=== PATIENT | female | born 1935 ===

== ENCOUNTER 2019-01-27 11:01 | Inpatient (IN) | payer OTHER ==
[2019-01-27 11:01] VITALS: BMI 35.0
[2019-01-27 12:00] LABS: BASO % 0.6 % (0.0-2.0); EOS # 0.2 K/uL (0.0-0.7); EOS % 4.3 % (0.0-4.0); HEMOGLOBIN 12.2 g/dL (12.0-16.0); LYMPH # 1.1 K/uL (1.0-4.3); LYMPH % 20.4 % (20.0-40.0); MEAN CELL VOLUME 91.4 fl (81.0-99.0); MEAN CORPUSCULAR HEMOGLOBIN 30.5 pg (27.0-31.0); MEAN CORPUSCULAR HGB CONC 33.4 g/dL (33.0-37.0); MEAN PLATELET VOLUME 11.2 fl (7.2-11.7); MONO # 0.5 K/uL (0.0-0.8); MONO % 8.7 % (0.0-10.0); NEUT # 3.6 K/uL (1.8-7.0); RED CELL DISTRIBUTION WIDTH 14.4 % (11.5-14.5); WHITE BLOOD COUNT 5.5 K/uL (4.8-10.8)
[2019-01-27 12:05] LABS: PROTHROMBIN TIME 11.6 Seconds (9.8-13.1)
[2019-01-27 12:07] LABS: PARTIAL THROMBOPLASTIN TIME 28.2 Seconds (25.6-37.1)
[2019-01-27 12:15] LABS: ALB/GLOB RATIO 1.3 (1.0-2.1); BLOOD UREA NITROGEN 19 mg/dl (7-17); CALCIUM 8.9 mg/dL (8.4-10.2); GFR NON-AFRICAN AMERICAN 53
[2019-01-27 12:24] LABS: B-TYPE NATRIURETIC PEPTIDE 1160 pg/ml (0-900)
[2019-01-27 12:30] LABS: ALT/SGPT 13 U/L (9-52); AST/SGOT 24 U/L (14-36)
[2019-01-27] MEDS ORDERED: Enalaprilat 2.5 MG/2 ML IVP STA (12:53)
--- NOTE | 2019-01-27 12:56 | RAD ---
Date of service: 01/27/2019 HISTORY: SOB COMPARISON: 07/30/2014 TECHNIQUE: 1 view obtained. FINDINGS: LUNGS: No active pulmonary disease. PLEURA: No significant pleural effusion identified, no pneumothorax apparent. CARDIOVASCULAR: Mild aortic atherosclerotic calcification present. Normal cardiac size. No pulmonary vascular congestion. OSSEOUS STRUCTURES: No significant abnormalities. VISUALIZED UPPER ABDOMEN: Normal. OTHER FINDINGS: None. IMPRESSION: No active disease.
--- NOTE | 2019-01-27 12:58 | CT ---
Date of service: 01/27/2019 PROCEDURE: CT HEAD WITHOUT CONTRAST. HISTORY: r/o ICH COMPARISON: None available. TECHNIQUE: Axial computed tomography images were obtained through the head/brain without intravenous contrast. Radiation dose: Total exam DLP = 908.11 mGy-cm. This CT exam was performed using one or more of the following dose reduction techniques: Automated exposure control, adjustment of the mA and/or kV according to patient size, and/or use of iterative reconstruction technique. FINDINGS: HEMORRHAGE: No intracranial hemorrhage. BRAIN: No mass effect or edema. Diffuse cerebral cortical atrophy and age-related microangiopathic small-vessel changes in the white matter tracts are appreciated. A few tiny lacunar infarcts are also not excluded. Posterior fossa is unremarkable. There is moderate atherosclerotic change of the intracranial internal carotid arteries. VENTRICLES: Unremarkable. No hydrocephalus. CALVARIUM: Unremarkable. PARANASAL SINUSES: Unremarkable as visualized. No significant inflammatory changes. MASTOID AIR CELLS: Unremarkable as visualized. No inflammatory changes. OTHER FINDINGS: None. IMPRESSION: No evidence of recent infarct or intracranial hemorrhage. Age related changes.
--- NOTE | 2019-01-27 13:19 | ED PDOC ---
HPI: Hypertension/Hypotension Time Seen by Provider: 01/27/19 11:19 Chief Complaint (Nursing): High Blood Pressure Chief Complaint (Provider): headache, "my blood pressure is high" History Per: Patient History/Exam Limitations: no limitations Onset/Duration Of Symptoms: Days (2-3 days), Gradual Associated Symptoms: Blurred Vision, Headache. denies: Dyspnea, Focal Weakness Quality Of Symptoms: Other (bradycardia on monitor but no palpitations) Severity: Moderate Exacerbating Factor(s): Pos: Recent Change In Medication Additional History Per: Family (granddaughter is an RN) Additional Complaint(s): 84yo female hx HTN, within last several weeks had antihyperensive regimen changed to toprol 50mg monotherapy, prior on amlodipine and bystolic, today notes her BP has been very high and she's experiencing headache and blurry vision, also feels slightly off balance. Denies chest pain, notes mild dyspnea on exertion but no edema, orthopnea, syncope, focal weakness, change in speech or falls within last 2 weeks. Does not take aspirin. Past Medical History Reviewed: Historical Data, Nursing Documentation, Vital Signs Vital Signs: Last Vital Signs Temp 98.4 F 01/27/19 11:06 Pulse 55 L 01/27/19 11:58 Resp 18 01/27/19 11:06 BP 239/96 H 01/27/19 11:58 Pulse Ox 98 01/27/19 11:06 - Medical History PMH: Arthritis, HTN Denies: Diabetes, Chronic Kidney Disease - Surgical History Surgical History: Cholecystectomy Other surgeries: cataract - Family History Family History: States: Unknown Family Hx - Living Arrangements Living Arrangements: With Family - Social History Current smoker - smoking cessation education provided: No (quit 40yrs ago) - Home Medications Home Medications: Ambulatory Orders Medication Instructions Recorded Latanoprost 0.005% Opht [Xalatan 1 drop OU HS #1 bottle 01/29/19 Opht] Losartan [Cozaar] 100 mg PO DAILY #30 tab 01/29/19 Metoprolol Tartrate [Lopressor] 25 mg PO Q12 #60 tab 01/29/19 Rivaroxaban [Xarelto] 20 mg PO QD5 #30 tab 01/29/19 - Allergies Allergies/Adverse Reactions: Allergies Allergy/AdvReac Type Severity Reaction Status Date / Time ciprofloxacin [From Cipro] Allergy SWELLING Verified 01/27/19 11:06 Review of Systems Constitutional: Negative for: Fever Eyes: Negative for: Conjunctivae Inflammation ENT: Negative for: Ear Pain Cardiovascular: Negative for: Chest Pain, Palpitations Respiratory: Positive for: SOB with Exertion. Negative for: Cough, Shortness of Breath Gastrointestinal: Negative for: Nausea, Vomiting Genitourinary Female: Negative for: Dysuria Skin: Negative for: Rash Neurological: Positive for: Incoordination (slight), Headache, Dizziness. Negative for: Weakness, Numbness, Change in Speech Psych: Negative for: Anxiety, Depression Physical Exam - Reviewed Nursing Documentation Reviewed: Yes Vital Signs Reviewed: Yes - Physical Exam Appears: Positive for: Well, Non-toxic, No Acute Distress Head Exam: Positive for: ATRAUMATIC, NORMAL INSPECTION, NORMOCEPHALIC Skin: Positive for: Normal Color, Warm, DRY Eye Exam: Positive for: EOMI, Normal appearance, PERRL ENT: Positive for: Normal ENT Inspection Neck: Positive for: Normal, Painless ROM Cardiovascular/Chest: Positive for: Regular Rate, Rhythm Respiratory: Positive for: CNT, Normal Breath Sounds Gastrointestinal/Abdominal: Positive for: Normal Exam, Soft Back: Positive for: Normal Inspection Extremity: Positive for: Normal ROM Neurological/Psych: Positive for: Awake, Alert, Normal Tone, Oriented, Cerebellar Tests (intact), 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 Negative for: Motor/Sensory Deficits, Facial Droop - Laboratory Results Result Diagrams: 01/29/19 04:20 01/29/19 04:20 Lab Results: PT 11.6 Seconds (9.8-13.1) 01/27/19 11:55 INR 1.0 01/27/19 11:55 APTT 28.2 Seconds (25.6-37.1) 01/27/19 11:55 Troponin I < 0.0120 ng/mL (0.00-0.120) 01/27/19 11:55 NT-Pro-B Natriuret Pep 1160 pg/ml (0-900) H 01/27/19 11:55 Total Bilirubin 0.8 mg/dl (0.2-1.3) 01/27/19 11:55 AST 24 U/L (14-36) 01/27/19 11:55 ALT 13 U/L (9-52) 04/21/19 11:55 Alkaline Phosphatase 65 U/L (38-126) 01/27/19 11:55 Total Protein 7.1 G/DL (6.3-8.2) 01/27/19 11:55 Albumin 4.0 g/dL (3.5-5.0) 01/27/19 11:55 Globulin 3.1 gm/dL (2.2-3.9) 01/27/19 11:55 Albumin/Globulin Ratio 1.3 (1.0-2.1) 01/27/19 11:55 - ECG ECG: Positive for: Interpreted By Me ECG Rhythm: Positive for: Sinus Rhythm, Sinus Bradycardia, Nonspecific Changes Rate: 47 O2 Sat by Pulse Oximetry: 98 Pulse Ox Interpretation: Normal - Radiology X-Ray: Read By Radiologist X-Ray Interpretation: No Acute Disease - CT Scan/US CT brain Other Rad Studies (CT/US): Radiology Report Reviewed Medical Decision Making Medical Decision Making: patient denies prior seeing content assistant workup for hypertensive urgency with headache, bradycardia on monitor. 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 Needs BP medications adjusted and echo, no cardio eval prior. Patient requested a new PMD, does not wish to see Dr Clarke any longer. inbound call center representative medicine Dr Diego contacted and case discussed. Cardio consult to be ordered. Disposition - Clinical Impression Clinical Impression: Bradycardia, Hypertensive urgency, Headache - Patient ED Disposition Is Patient to be Admitted: Yes Counseled Patient/Family Regarding: Studies Performed, Diagnosis, Need For Followup - Disposition Disposition Time: 13:35 Condition: FAIR - Pt Status Changed To: Hospital Disposition Of: Inpatient - Admit Certification Admit to Inpatient:: After my assessment, the patient will require hospitalization for at least two midnights. This is because of the severity of symptoms shown, intensity of services needed, and/or the medical risk in this patient being treated as an outpatient.
[2019-01-27] MEDS ORDERED: EnalaprilAT 1.25 mg/ml Inj IVP STA (13:23)
[2019-01-27] MEDS ORDERED: EnalaprilAT 1.25 mg/ml Inj ONE (13:28)
--- NOTE | 2019-01-27 14:30 | CP.PCM.HP ---
<Tomás Rojas - Last Filed: 01/27/19 15:44> History of Present Illness - History of Present Illness History of Present Illness: Hx taken from patient PMD Dr Clarke 84 y/o F lives alone and presents to ER with c/o headache, lightheadedness and elevated BP at home. Patient admits Hx of HTN, Cataract and O/A. She has been taking Metoprolol and vitamins but no other meds at home before presentations. HEadaches are generalized and present for the last 3 days. No falls, weakness, difficulty speaking or numbness/tingling. She states that today her BP at home was 246/80s. Denies CP, SOB, paalpitations and states she is able to walk few block with a cane with no SOB. Denies hx of CAD/CP in the past. 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 Also patient admits urinary incontinence for last few years, getting worse, not currently taking any meds which she describes as inability to reach the bathroom in time. At ED patient was found to have elevated BP with slow HR. She was given Clonidine 0.2 that corrected the HBP. HEadache persistent as well as HR in 40s. BW only remarkable for BNP 1160 and GFR 53. PMHx: HTN. O/A. Cataract Meds: Toprol 50 mg daily. Also found to have Timolol as active meds on med rec unsure is currently using it SxHx: Foot Sx, Cholecystectomy, Cataract SHx: Former smoker and socially ETOH more than 30 years ago. Present on Admission - Present on Admission Any Indicators Present on Admission: No Review of Systems - Review of Systems All systems: reviewed and no additional remarkable complaints except (those described on HPI) Past Patient History - Past Medical History & Family History Past Medical History?: Yes - Past Social History Smoking Status: Former Smoker Alcohol: None - CARDIAC Hx Hypertension: Yes - PULMONARY Hx Respiratory Disorders: No - NEUROLOGICAL Hx Neurological Disorder: Yes Other/Comment: NEUROPATHY - HEENT Hx HEENT Problems: Yes Hx Cataracts: Yes Hx Glaucoma: Yes - RENAL Hx Chronic Kidney Disease: No - ENDOCRINE/METABOLIC Hx Endocrine Disorders: No - HEMATOLOGICAL/ONCOLOGICAL Hx Blood Disorders: No - INTEGUMENTARY Hx Dermatological Problems: No Other/Comment: chicken pox measles - MUSCULOSKELETAL/RHEUMATOLOGICAL Hx Arthritis: Yes - GASTROINTESTINAL Hx Gastrointestinal Disorders: No - GENITOURINARY/GYNECOLOGICAL Hx Genitourinary Disorders: Yes Other/Comment: Urge incontinence - PSYCHIATRIC Hx Psychophysiologic Disorder: No Hx Substance Use: No - SURGICAL HISTORY Hx Surgeries: Yes Hx Cataract Extraction: Yes Hx Cholecystectomy: Yes - ANESTHESIA Hx Anesthesia: Yes Hx Anesthesia Reactions: No Hx Malignant Hyperthermia: No Meds Allergies/Adverse Reactions: Allergies Allergy/AdvReac Type Severity Reaction Status Date / Time ciprofloxacin [From Cipro] Allergy SWELLING Verified 01/27/19 11:06 Physical Exam - Constitutional Appears: Non-toxic, No Acute Distress Additional comments: Pleasant - Eye Exam Eye Exam: EOMI, Normal appearance - ENT Exam ENT Exam: Mucous Membranes Moist - Respiratory Exam Respiratory Exam: Rales (Scattered rales more to R/lower lung), NORMAL BREATHING PATTERN. absent: Decreased Breath Sounds, Wheezes, Respiratory Distress - Cardiovascular Exam Cardiovascular Exam: Bradycardia, REGULAR RHYTHM, +S1, +S2. absent: Gallop - GI/Abdominal Exam GI & Abdominal Exam: Normal Bowel Sounds, Soft. absent: Distended, Guarding, Hernia, Tenderness - Extremities Exam Extremities exam: Positive for: normal capillary refill, pedal edema (trace), pedal pulses present. Negative for: calf tenderness - Neurological Exam Neurological exam: Alert, Oriented x3, Reflexes Normal - Skin Skin Exam: Intact, Normal Color, Warm Results - Vital Signs Recent Vital Signs: Last Vital Signs Temp 98.4 F 01/27/19 11:06 Pulse 47 L 01/27/19 13:54 Resp 17 01/27/19 13:31 BP 149/73 01/27/19 13:31 Pulse Ox 98 01/27/19 13:54 - Labs Result Diagrams: 01/27/19 11:55 01/27/19 11:55 Labs: Laboratory Results - last 24 hr 01/27/19 01/27/19 01/27/19 11:55 11:55 11:55 WBC 5.5 RBC 4.00 Hgb 12.2 Hct 36.6 MCV 91.4 MCH 30.5 MCHC 33.4 RDW 14.4 Plt Count 191 MPV 11.2 Neut % (Auto) 66.0 Lymph % (Auto) 20.4 [place] % (Auto) 8.7 Eos % (Auto) 4.3 H Baso % (Auto) 0.6 Neut # (Auto) 3.6 Lymph # (Auto) 1.1 [place] # (Auto) 0.5 Eos # (Auto) 0.2 Baso # (Auto) 0.0 PT 11.6 INR 1.0 APTT 28.2 Sodium 138 Potassium 4.7 Chloride 101 Carbon Dioxide 29 Anion Gap 13 BUN 19 H Creatinine 1.0 Est GFR ( Amer) > 60 Est GFR (Non-Af Amer) 53 Random Glucose 99 Calcium 8.9 Phosphorus 3.7 Magnesium 2.0 Total Bilirubin 0.8 AST 24 ALT 13 Alkaline Phosphatase 65 Troponin I < 0.0120 NT-Pro-B Natriuret Pep 1160 H Total Protein 7.1 Albumin 4.0 Globulin 3.1 Albumin/Globulin Ratio 1.3 TSH 3rd Generation 2.73 Assessment & Plan - Assessment and Plan (Free Text) Assessment: 84 y/o F with hx of HTN, cataract and apparently glaucoma is admitted for hypertensive urgency and bradycardia. Hypertensive urgency Improved BP normalized but persistent bradycardia Headache improving. Dizziness resolved EKG NSR CT head: Age related changes BNP 1160 and GFR 53 likely chronic Liver enzimes WNL S/P Clonidine 0.2 mg once at ED Hold BB and Timolol due to bradycardia Start Clonidine 0.1 mg q8h for now Cardiology consult. F/U recs Bradycardia HR 40s sustained EKG: sinus bradycardia NO change after clonidine treatment Hold BB due to bradycardia. 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 Admit to tele Cardiology consult CKD Stage IV GFR 53 Monitor Elevated ProBNP No known Hx of CHF but some rales on PE No SOB Possible CHF with some CKD component Cardio consult F/U as outpatient DVT prophylaxis Lovenox 40 mg daily <Ramiro Diego D - Last Filed: 01/27/19 16:56> Results - Vital Signs Recent Vital Signs: Last Vital Signs Temp 97.7 F 01/27/19 16:40 Pulse 48 L 01/27/19 16:40 Resp 18 01/27/19 16:40 BP 182/70 H 01/27/19 16:40 Pulse Ox 94 L 01/27/19 16:40 - Labs Result Diagrams: 01/27/19 11:55 01/27/19 11:55 Labs: Laboratory Results - last 24 hr 01/27/19 01/27/19 01/27/19 11:55 11:55 11:55 WBC 5.5 RBC 4.00 Hgb 12.2 Hct 36.6 MCV 91.4 MCH 30.5 MCHC 33.4 RDW 14.4 Plt Count 191 MPV 11.2 Neut % (Auto) 66.0 Lymph % (Auto) 20.4 [place] % (Auto) 8.7 Eos % (Auto) 4.3 H Baso % (Auto) 0.6 Neut # (Auto) 3.6 Lymph # (Auto) 1.1 [place] # (Auto) 0.5 Eos # (Auto) 0.2 Baso # (Auto) 0.0 PT 11.6 INR 1.0 APTT 28.2 Sodium 138 Potassium 4.7 Chloride 101 Carbon Dioxide 29 Anion Gap 13 BUN 19 H Creatinine 1.0 Est GFR ( Amer) > 60 Est GFR (Non-Af Amer) 53 Random Glucose 99 Calcium 8.9 Phosphorus 3.7 Magnesium 2.0 Total Bilirubin 0.8 AST 24 ALT 13 Alkaline Phosphatase 65 Troponin I < 0.0120 NT-Pro-B Natriuret Pep 1160 H Total Protein 7.1 Albumin 4.0 Globulin 3.1 Albumin/Globulin Ratio 1.3 TSH 3rd Generation 2.73 Urine Color Urine Clarity Urine pH Ur Specific [place] Urine Protein Urine Glucose (UA) Urine Ketones Urine Blood Urine Nitrate Urine Bilirubin Urine Urobilinogen Ur Leukocyte Esterase Urine RBC (Auto) Urine Microscopic WBC Ur Squamous Epith Cells Urine Bacteria 01/27/19 15:11 WBC RBC Hgb Hct MCV MCH MCHC RDW Plt Count MPV Neut % (Auto) Lymph % (Auto) [place] % (Auto) Eos % (Auto) Baso % (Auto) Neut # (Auto) Lymph # (Auto) [place] # (Auto) Eos # (Auto) Baso # (Auto) PT INR APTT Sodium Potassium Chloride Carbon Dioxide Anion Gap BUN Creatinine Est GFR ( Amer) Est GFR (Non-Af Amer) Random Glucose Calcium Phosphorus Magnesium Total Bilirubin AST ALT Alkaline Phosphatase Troponin I NT-Pro-B Natriuret Pep Total Protein Albumin Globulin Albumin/Globulin Ratio TSH 3rd Generation Urine Color Yellow Urine Clarity Clear Urine pH 7.0 Ur Specific [place] 1.010 Urine Protein 100 Urine Glucose (UA) Neg Urine Ketones Negative Urine Blood Negative Urine Nitrate Negative Urine Bilirubin Negative Urine Urobilinogen 0.2-1.0 Ur Leukocyte Esterase Trace Urine RBC (Auto) 1 Urine Microscopic WBC 9 H Ur Squamous Epith Cells < 1 Urine Bacteria Occ H Attending/Attestation - Attestation I have personally seen and examined this patient.: Yes I have fully participated in the care of the patient.: Yes I have reviewed all pertinent clinical information: Yes Notes (Text): 01/27/19 16:56 Patient seen and examined with resident. Case discussed and agreed with assessm ent and plan of management.
[2019-01-27 15:38] LABS: SQUAMOUS EPITHIAL < 1 /hpf (0-5); URINE BACTERIA OCC (<OCC); URINE BILIRUBIN NEGATIVE (NEGATIVE); URINE BLOOD NEGATIVE (NEGATIVE); URINE CLARITY CLEAR (Clear); URINE COLOR YELLOW (YELLOW); URINE GLUCOSE (UA) NEG (NEGATIVE); URINE LEUKOCYTE ESTERASE TRACE Leu/uL (Negative); URINE PROTEIN 100 mg/dL (NEGATIVE); URINE UROBILINOGEN 0.2-1.0 mg/dL (0.2-1.0)
[2019-01-27] MEDS ORDERED: EnalaprilAT 1.25 mg/ml Inj IV ONE ×2 (15:43→16:00)
--- NOTE | 2019-01-27 21:17 | CARD ---
APPROVED REPORT Date of service: 01/27/2019 EKG Measurement Heart [id number] <Conclusion> Sinus bradycardia Otherwise normal ECG
--- NOTE | 2019-01-27 21:19 | CARD ---
APPROVED REPORT Date of service: 01/27/2019 EKG Measurement Heart [id number] <Conclusion> Sinus bradycardia Baseline artifact Normal ECG
[2019-01-28 05:29] LABS: HEMOGLOBIN 11.7 g/dL (12.0-16.0); MEAN CELL VOLUME 91.8 fl (81.0-99.0); MEAN CORPUSCULAR HEMOGLOBIN 30.8 pg (27.0-31.0); MEAN CORPUSCULAR HGB CONC 33.6 g/dL (33.0-37.0); RBC 3.81 Mil/uL (3.80-5.20); RED CELL DISTRIBUTION WIDTH 14.3 % (11.5-14.5); WHITE BLOOD COUNT 5.8 K/uL (4.8-10.8)
[2019-01-28 05:37] LABS: BLOOD UREA NITROGEN 19 mg/dl (7-17); CALCIUM 8.7 mg/dL (8.4-10.2); GFR NON-AFRICAN AMERICAN 53
[2019-01-28] MEDS ORDERED: Enoxaparin 40 mg Syringe SC SCH (09:00)
--- NOTE | 2019-01-28 10:05 | CP.PCM.CON ---
History of Present Illness - History of Present Illness History of Present Illness: This 84-year-old female is hypertensive for more than 35 years, came to the emergency room after complaining of headaches and recording of her blood pressure at home which exceeded 200 mmHg systolic. The patient has been taking various medications which have been changed by her physician numerous times in the recent past with little improvement in her blood pressure or symptoms. She is not a diabetic or a smoker and has never suffered a myocardial infarction or chest pains. Her physical activities are severely curtailed because of painful knees as a consequence of osteo-arthritis. She has been hospitalized in the past for issues concerning her feet but there have not been any cardiac issues and she has not taken any medications for her heart. Her mother was a hypertensive but no other member of the family has had vascular issues. The patient was an elderly female quite alert awake coherent afebrile. She was able to carry on a conversation with virtually lying flat in bed and was breath ing at 14 breaths/min and a heart rate of 130 bpm irregularly irregular. Her telemetry shows atrial fibrillation at heart rates between 110 and 130 bpm since last evening. The patient does not report any palpitations at this point. Her blood pressure was 170/80 mmHg. Her jugular venous pressure was not elevated there was no edema over her lower extremities. The pedal pulses were where well felt. There were no carotid bruits. Thyroid and breast did not reveal anything abnormal. Her both knees were swollen and tender. The patient was mildly kyphotic. The apex was not palpable the first and second heart sounds were distant but normal. There was a brief apical systolic murmur there was no gallop rhythm there were no rales. Her abdomen was soft and liver and spleen were not palpable. Her electrocardiogram at admission and 3 hours later showed sinus rhythm at mildly bradycardic rate but otherwise a normal EKG pattern. Her lab data showed virtually normal BUN/creatinine and electrolytes. Rest of her labs were noted. impression : Hypertension with atrial fibrillation. Severe osteoarthritic knees. I have started the patient on a beta-calvin and oral anticoagulation and an echocardiogram has been requested. The patient does not display any overt evidence of congestive cardiac failure even while in atrial fibrillation. Past Patient History - Past Medical History & Family History Past Medical History?: Yes - Past Social History Smoking Status: Former Smoker - CARDIAC Hx Hypertension: Yes - PULMONARY Hx Respiratory Disorders: No - NEUROLOGICAL Hx Neurological Disorder: Yes Other/Comment: NEUROPATHY - HEENT Hx HEENT Problems: Yes Hx Cataracts: Yes Hx Glaucoma: Yes - RENAL Hx Chronic Kidney Disease: No - ENDOCRINE/METABOLIC Hx Endocrine Disorders: No - HEMATOLOGICAL/ONCOLOGICAL Hx Blood Disorders: No - INTEGUMENTARY Hx Dermatological Problems: No Other/Comment: chicken pox measles - MUSCULOSKELETAL/RHEUMATOLOGICAL Hx Arthritis: Yes Hx Falls: Yes - GASTROINTESTINAL Hx Gastrointestinal Disorders: No - GENITOURINARY/GYNECOLOGICAL Hx Genitourinary Disorders: Yes Other/Comment: Urge incontinence - PSYCHIATRIC Hx Psychophysiologic Disorder: No Hx Substance Use: No - SURGICAL HISTORY Hx Surgeries: Yes Hx Cataract Extraction: Yes Hx Cholecystectomy: Yes - ANESTHESIA Hx Anesthesia: Yes Hx Anesthesia Reactions: No Hx Malignant Hyperthermia: No Has any member of the family had a problem w/ anesthesia?: No Meds Allergies/Adverse Reactions: Allergies Allergy/AdvReac Type Severity Reaction Status Date / Time ciprofloxacin [From Cipro] Allergy SWELLING Verified 01/27/19 11:06 - Medications Medications: Current Medications Acetaminophen (Tylenol 325mg Tab) 650 mg PO Q6 PRN PRN Reason: Headache Losartan Potassium (Cozaar) 100 mg PO DAILY [facility] Metoprolol Tartrate (Lopressor) 50 mg PO Q12 [facility] Ondansetron HCl (Zofran Inj) 4 mg IVP Q6 PRN PRN Reason: Nausea/Vomiting Rivaroxaban (Xarelto) 20 mg PO QD5 [facility]; Protocol Results - Vital Signs Recent Vital Signs: Last Vital Signs Temp 97.8 F 01/28/19 08:00 Pulse 92 H 01/28/19 08:00 Resp 18 01/28/19 08:00 BP 172/84 H 01/28/19 08:00 Pulse Ox 100 01/28/19 08:00 - Labs Result Diagrams: 01/28/19 04:20 01/28/19 04:20 Labs: Laboratory Results - last 24 hr 01/27/19 01/27/19 01/27/19 11:55 11:55 11:55 WBC 5.5 RBC 4.00 Hgb 12.2 Hct 36.6 MCV 91.4 MCH 30.5 MCHC 33.4 RDW 14.4 Plt Count 191 MPV 11.2 Neut % (Auto) 66.0 Lymph % (Auto) 20.4 [place] % (Auto) 8.7 Eos % (Auto) 4.3 H Baso % (Auto) 0.6 Neut # (Auto) 3.6 Lymph # (Auto) 1.1 [place] # (Auto) 0.5 Eos # (Auto) 0.2 Baso # (Auto) 0.0 PT 11.6 INR 1.0 APTT 28.2 Sodium 138 Potassium 4.7 Chloride 101 Carbon Dioxide 29 Anion Gap 13 BUN 19 H Creatinine 1.0 Est GFR ( Amer) > 60 Est GFR (Non-Af Amer) 53 Random Glucose 99 Calcium 8.9 Phosphorus 3.7 Magnesium 2.0 Total Bilirubin 0.8 AST 24 ALT 13 Alkaline Phosphatase 65 Troponin I < 0.0120 NT-Pro-B Natriuret Pep 1160 H Total Protein 7.1 Albumin 4.0 Globulin 3.1 Albumin/Globulin Ratio 1.3 TSH 3rd Generation 2.73 Urine Color Urine Clarity Urine pH Ur Specific [place] Urine Protein Urine Glucose (UA) Urine Ketones Urine Blood Urine Nitrate Urine Bilirubin Urine Urobilinogen Ur Leukocyte Esterase Urine RBC (Auto) Urine Microscopic WBC Ur Squamous Epith Cells Urine Bacteria 01/27/19 01/28/19 01/28/19 15:11 04:20 04:20 WBC 5.8 RBC 3.81 Hgb 11.7 L Hct 35.0 MCV 91.8 MCH 30.8 MCHC 33.6 RDW 14.3 Plt Count 177 MPV Neut % (Auto) Lymph % (Auto) [place] % (Auto) Eos % (Auto) Baso % (Auto) Neut # (Auto) Lymph # (Auto) [place] # (Auto) Eos # (Auto) Baso # (Auto) PT INR APTT Sodium 139 Potassium 4.3 Chloride 102 Carbon Dioxide 30 Anion Gap 11 BUN 19 H Creatinine 1.0 Est GFR ( Amer) > 60 Est GFR (Non-Af Amer) 53 Random Glucose 103 Calcium 8.7 Phosphorus Magnesium Total Bilirubin AST ALT Alkaline Phosphatase Troponin I NT-Pro-B Natriuret Pep Total Protein Albumin Globulin Albumin/Globulin Ratio TSH 3rd Generation Urine Color Yellow Urine Clarity Clear Urine pH 7.0 Ur Specific [place] 1.010 Urine Protein 100 Urine Glucose (UA) Neg Urine Ketones Negative Urine Blood Negative Urine Nitrate Negative Urine Bilirubin Negative Urine Urobilinogen 0.2-1.0 Ur Leukocyte Esterase Trace Urine RBC (Auto) 1 Urine Microscopic WBC 9 H Ur Squamous Epith Cells < 1 Urine Bacteria Occ H
--- NOTE | 2019-01-28 10:32 | CP.PCM.PN ---
Subjective - Date & Time of Evaluation Date of Evaluation: 01/28/19 Time of Evaluation: 10:55 - Subjective Subjective: Seen at bedside in not acute distress, tolerating flat decubitus. No acute changes in urination or stools. NO acute events overnight. Noted increased HR this AM on monitor and a.fib. Objective - Vital Signs/Intake and Output Vital Signs (last 24 hours): Temp Pulse Resp BP Pulse Ox 97.8 F 92 H 18 172/84 H 100 01/28/19 08:00 01/28/19 08:00 01/28/19 08:00 01/28/19 08:00 01/28/19 08:00 - Medications Medications: Current Medications Acetaminophen (Tylenol 325mg Tab) 650 mg PO Q6 PRN PRN Reason: Headache Losartan Potassium (Cozaar) 100 mg PO DAILY YAW Metoprolol Tartrate (Lopressor) 50 mg PO Q12 YAW Ondansetron HCl (Zofran Inj) 4 mg IVP Q6 PRN PRN Reason: Nausea/Vomiting Rivaroxaban (Xarelto) 20 mg PO QD5 YAW; Protocol - Labs Labs: 01/28/19 04:20 01/28/19 04:20 PT 11.6 Seconds (9.8-13.1) 01/27/19 11:55 INR 1.0 01/27/19 11:55 APTT 28.2 Seconds (25.6-37.1) 01/27/19 11:55 - Constitutional Appears: Non-toxic, No Acute Distress - Eye Exam Eye Exam: EOMI, PERRL - ENT Exam ENT Exam: Mucous Membranes Moist - Respiratory Exam Respiratory Exam: Clear to Ausculation Bilateral, NORMAL BREATHING PATTERN - Cardiovascular Exam Cardiovascular Exam: Tachycardia, +S1, +S2. absent: Gallop - GI/Abdominal Exam GI & Abdominal Exam: Soft, Normal Bowel Sounds. absent: Tenderness - Extremities Exam Extremities Exam: absent: Calf Tenderness, Pedal Edema - Neurological Exam Neurological Exam: Alert, Awake, Oriented x3 - Psychiatric Exam Psychiatric exam: Normal Affect, Normal Mood Assessment and Plan - Assessment and Plan (Free Text) Assessment: 84 y/o F with hx of HTN, cataract and apparently glaucoma is admitted for hypertensive urgency and bradycardia. A.fib Asymptomatic Max HR 130s this AM Likely chronic triggered after BB stopped due to severe bradycardia Restarted on Metoprolol tar 50 mg q12h by Cardiology Started on Xarelto by Cardiology Hypertensive urgency Resolved Asymptomatic Bradycardia Resolved HTN Chronic BP more controlled Cardiology consult. F/U recs C/W Losartan 100 mg daily as per Cardio CKD Stage IV Stable Monitor, avoid fluid overload Elevated ProBNP No known Hx of CHF No SOB Cardio consult recs appreciated. F/U Echo DVT prophylaxis DCed. Patient started on Xarelto
[2019-01-28] MEDS ORDERED: Latanoprost 0.005% Opht SOUTION OU SCH (22:00)
[2019-01-29 06:04] LABS: HEMOGLOBIN 12.5 g/dL (12.0-16.0); MEAN CORPUSCULAR HEMOGLOBIN 30.6 pg (27.0-31.0); MEAN CORPUSCULAR HGB CONC 33.3 g/dL (33.0-37.0); RBC 4.09 Mil/uL (3.80-5.20); RED CELL DISTRIBUTION WIDTH 14.8 % (11.5-14.5)
[2019-01-29 06:05] LABS: CALCIUM 8.8 mg/dL (8.4-10.2)
[2019-01-29 07:59] VITALS: BP 166/92; RESP 18; TEMP 97.8
--- NOTE | 2019-01-29 08:31 | CARD ---
APPROVED REPORT Date of service: 01/28/2019 EXAM: Two-dimensional and M-mode echocardiogram with Doppler and color Doppler. Other Information Quality : AverageRhythm : NSRAtrial Fibrillation INDICATION Atrial Fibrillation 2D DIMENSIONS IVSd1.70 (0.7-1.1cm)LVDd3.60 (3.9-5.9cm) LVOT Diameter1.70 (1.8-2.4cm)PWd1.06 (0.7-1.1cm) IVSs1.78 (0.8-1.2cm)LA Vpasvz08 (18-58mL) LVDs2.83 (2.5-4.0cm)FS (%) 21.4 % PWs1.39 (0.8-1.2cm) M-Mode DIMENSIONS Left Atrium (MM)2.77 (2.5-4.0cm)Aortic Root3.30 (2.2-3.7cm) Aortic Valve AoV Peak Lllzasxo279.7cm/sAoV VTI15.3cmAO Peak GR.4mmHg LVOT Peak Knwvdvcw15.8cm/sLVOT VTI14.92cmAO Mean GR.2mmHg TALON (VMAX)1.26oi4KQN (VTI)1.04bm2RP P 1/2 [id number] Mitral Valve MV E Tzndfrfe24.7cm/sE/A ratio0.0 TDI E/Lateral E'0.0E/Medial E'0.0 Tricuspid Valve RAP [id number] LEFT VENTRICLE The left ventricle is normal size. There is mild concentric left ventricular hypertrophy. Left ventricle systolic function is normal. LVEF is 65-70%. There is normal LV segmental wall motion. Pt in A Fib. RIGHT VENTRICLE The right ventricle is normal size. There is normal right ventricular wall thickness. The right ventricular systolic function is normal. ATRIA The left atrium size is normal. The right atrium size is normal. AORTIC VALVE The aortic valve is mildly sclerotic. There is trace to mild aortic regurgitation. There is no aortic valvular stenosis. MITRAL VALVE The mitral valve is normal in structure. There is no evidence of mitral valve prolapse. There is no mitral valve stenosis. There is no mitral valve regurgitation noted. TRICUSPID VALVE The tricuspid valve is normal in structure. There is no tricuspid valve regurgitation noted. PULMONIC VALVE The pulmonary valve is normal in structure. There is no pulmonic valvular regurgitation. GREAT VESSELS The aortic root is normal in size. The IVC is normal in size and collapses >50% with inspiration. PERICARDIAL EFFUSION The pericardium appears normal. <Conclusion> The left ventricle is normal size. There is mild concentric left ventricular hypertrophy. There is normal LV segmental wall motion. Left ventricle systolic function is normal. LVEF is 65-70%.
[2019-01-29 10:18] VITALS: PULSE 47; O2SAT 98
--- NOTE | 2019-01-29 10:43 | CP.PCM.DIS ---
<Tomás Rojas - Last Filed: 01/29/19 10:53> Provider - Provider Date of Admission: 01/27/19 13:46 Attending physician: Ramiro Diego MD Consults: 01/27/19 14:26 Cardiology Consult Stat Comment: Consulting Provider: Flip Negron V Consulting Physician: Flip Negron V Reason for Consult: uncontrolled HTN with bradycardia 01/27/19 18:27 Case Management Referral Routine Comment: Physician Instructions: Reason For Exam: Patient lives alone but has a home health aid Reason for Referral: Discharge Planning Social Work Referral Routine Comment: Lives alone but has home health aid Physician Instructions: Reason For Exam: Discharge planning Time Spent in preparation of Discharge (in minutes): 40 Diagnosis - Discharge Diagnosis (1) Bradycardia Status: Resolved (2) Hypertensive urgency Status: Resolved (3) Afib Status: Chronic (4) Glaucoma Status: Chronic Hospital Course - Lab Results Lab Results: Most Recent Lab Values WBC 6.0 K/uL (4.8-10.8) 01/29/19 04:20 RBC 4.09 Mil/uL (3.80-5.20) 01/29/19 04:20 Hgb 12.5 g/dL (12.0-16.0) 01/29/19 04:20 Hct 37.6 % (34.0-47.0) 01/29/19 04:20 MCV 92.0 fl (81.0-99.0) 01/29/19 04:20 MCH 30.6 pg (27.0-31.0) 01/29/19 04:20 MCHC 33.3 g/dL (33.0-37.0) 01/29/19 04:20 RDW 14.8 % (11.5-14.5) H 01/29/19 04:20 Plt Count 186 K/uL (130-400) 01/29/19 04:20 MPV 11.2 fl (7.2-11.7) 01/27/19 11:55 Neut % (Auto) 66.0 % (50.0-75.0) 01/27/19 11:55 Lymph % (Auto) 20.4 % (20.0-40.0) 01/27/19 11:55 [place] % (Auto) 8.7 % (0.0-10.0) 01/27/19 11:55 Eos % (Auto) 4.3 % (0.0-4.0) H 01/27/19 11:55 Baso % (Auto) 0.6 % (0.0-2.0) 01/27/19 11:55 Neut # (Auto) 3.6 K/uL (1.8-7.0) 01/27/19 11:55 Lymph # (Auto) 1.1 K/uL (1.0-4.3) 01/27/19 11:55 [place] # (Auto) 0.5 K/uL (0.0-0.8) 01/27/19 11:55 Eos # (Auto) 0.2 K/uL (0.0-0.7) 01/27/19 11:55 Baso # (Auto) 0.0 K/uL (0.0-0.2) 01/27/19 11:55 PT 11.6 Seconds (9.8-13.1) 01/27/19 11:55 INR 1.0 01/27/19 11:55 APTT 28.2 Seconds (25.6-37.1) 01/27/19 11:55 Sodium 138 mmol/l (132-148) 01/29/19 04:20 Potassium 3.8 MMOL/L (3.6-5.0) 01/29/19 04:20 Chloride 102 mmol/L (98-107) 01/29/19 04:20 Carbon Dioxide 27 mmol/L (22-30) 01/29/19 04:20 Anion Gap 13 (10-20) 01/29/19 04:20 BUN 21 mg/dl (7-17) H 01/29/19 04:20 Creatinine 1.1 mg/dl (0.7-1.2) 01/29/19 04:20 Est GFR ( Amer) 57 01/29/19 04:20 Est GFR (Non-Af Amer) 47 01/29/19 04:20 Random Glucose 87 mg/dL (65-105) 01/29/19 04:20 Calcium 8.8 mg/dL (8.4-10.2) 01/29/19 04:20 Phosphorus 3.7 mg/dl (2.5-4.5) 01/27/19 11:55 Magnesium 2.0 MG/DL (1.6-2.3) 01/27/19 11:55 Total Bilirubin 0.8 mg/dl (0.2-1.3) 01/27/19 11:55 AST 24 U/L (14-36) 01/27/19 11:55 ALT 13 U/L (9-52) 01/27/19 11:55 Alkaline Phosphatase 65 U/L (38-126) 01/27/19 11:55 Troponin I < 0.0120 ng/mL (0.00-0.120) 01/27/19 11:55 NT-Pro-B Natriuret Pep 1160 pg/ml (0-900) H 01/27/19 11:55 Total Protein 7.1 G/DL (6.3-8.2) 01/27/19 11:55 Albumin 4.0 g/dL (3.5-5.0) 01/27/19 11:55 Globulin 3.1 gm/dL (2.2-3.9) 01/27/19 11:55 Albumin/Globulin Ratio 1.3 (1.0-2.1) 01/27/19 11:55 TSH 3rd Generation 2.73 mIU/ML (0.46-4.68) 01/27/19 11:55 Urine Color Yellow (YELLOW) 01/27/19 15:11 Urine Clarity Clear (Clear) 01/27/19 15:11 Urine pH 7.0 (5.0-8.0) 01/27/19 15:11 Ur Specific Bradley 1.010 (1.003-1.030) 01/27/19 15:11 Urine Protein 100 mg/dL (NEGATIVE) 01/27/19 15:11 Urine Glucose (UA) Neg mg/dL (NEGATIVE) 01/27/19 15:11 Urine Ketones Negative mg/dL (NEGATIVE) 01/27/19 15:11 Urine Blood Negative (NEGATIVE) 01/27/19 15:11 Urine Nitrate Negative (NEGATIVE) 01/27/19 15:11 Urine Bilirubin Negative (NEGATIVE) 01/27/19 15:11 Urine Urobilinogen 0.2-1.0 mg/dL (0.2-1.0) 01/27/19 15:11 Ur Leukocyte Esterase Trace Brook[place]nn/uL (Negative) 01/27/19 15:11 Urine RBC (Auto) 1 /hpf (0-3) 01/27/19 15:11 Urine Microscopic WBC 9 /hpf (0-5) H 01/27/19 15:11 Ur Squamous Epith Cells < 1 /hpf (0-5) 01/27/19 15:11 Urine Bacteria Occ (<OCC) H 01/27/19 15:11 - Hospital Course Hospital Course: 84 y/o F with hx of HTN and Glaucoma presented to hosp with c/o dizziness, headache and elevated BP at home. BP was normalized after treatment at ED but Patient was then admitted to hosp because HR 40s since arrival. Patient was on Metoprolol and Timolol drops as outpatient, both were held since admission. The following morning patient's hr increased and afib was seen on the qs2zsmlj. Senior [employer] Auditor Dr Negron evalauted patient and started Metoprolol tartrate 25 q12h, Losartan 100 mg and Xarelto. Echo didnt show any significant pathologies and patient was started on Latanoprost for glaucoma. Clinically stable and cleared by cardio to dc and c/w f/u as outpatient with PMD, Cardio and Ophtalmology. Discharge Exam - Head Exam Head Exam: ATRAUMATIC, NORMAL INSPECTION, NORMOCEPHALIC - Eye Exam Eye Exam: EOMI - ENT Exam ENT Exam: Mucous Membranes Moist - Respiratory Exam Respiratory Exam: Clear to PA & Lateral, NORMAL BREATHING PATTERN, UNREMARKABLE - Cardiovascular Exam Cardiovascular Exam: +S1, +S2. absent: Gallop - GI/Abdominal Exam GI & Abdominal Exam: Normal Bowel Sounds, Unremarkable. absent: Guarding, Te nderness - Neurological Exam Neurological exam: Alert, Oriented x3 - Psychiatric Exam Psychiatric exam: Normal Affect, Normal Mood - Skin Skin Exam: Warm Discharge Plan - Discharge Medications Prescriptions: Latanoprost 0.005% Opht [Xalatan Opht] 1 drop OU HS #1 bottle Losartan [Cozaar] 100 mg PO DAILY #30 tab Metoprolol Tartrate [Lopressor] 25 mg PO Q12 #60 tab Rivaroxaban [Xarelto] 20 mg PO QD5 #30 tab - Follow Up Plan Condition: STABLE Disposition: HOME/ ROUTINE Patient education suggested?: Yes Instructions: Bradycardia, Rivaroxaban, High Blood Pressure (DC) Additional Instructions: F/U with Senior Internal Auditor Dr Negron within 2 weeks F/U with PMD within 1 week(Please provide Dr Garcia and Dr Nava info since patient wants new PMD) F/U with your eye Dr within 2 weeks Referrals: Flip Negron MD [Staff Provider] - Julian Garcia MD [Medical Doctor] - Hernan Nava MD [Staff Provider] - <Ailyn Agosto - Last Filed: 01/29/19 11:03> Provider - Provider Date of Admission: 01/27/19 13:46 Attending physician: Ramiro Diego MD Consults: 01/27/19 14:26 Cardiology Consult Stat Comment: Consulting Provider: Flip Negron V Consulting Physician: Flip Negron V Reason for Consult: uncontrolled HTN with bradycardia 01/27/19 18:27 Case Management Referral Routine Comment: Physician Instructions: Reason For Exam: Patient lives alone but has a home health aid Reason for Referral: Discharge Planning Social Work Referral Routine Comment: Lives alone but has home health aid Physician Instructions: Reason For Exam: Discharge planning Hospital Course - Lab Results Lab Results: Most Recent Lab Values WBC 6.0 K/uL (4.8-10.8) 01/29/19 04:20 RBC 4.09 Mil/uL (3.80-5.20) 01/29/19 04:20 Hgb 12.5 g/dL (12.0-16.0) 01/29/19 04:20 Hct 37.6 % (34.0-47.0) 01/29/19 04:20 MCV 92.0 fl (81.0-99.0) 01/29/19 04:20 MCH 30.6 pg (27.0-31.0) 01/29/19 04:20 MCHC 33.3 g/dL (33.0-37.0) 01/29/19 04:20 RDW 14.8 % (11.5-14.5) H 01/29/19 04:20 Plt Count 186 K/uL (130-400) 01/29/19 04:20 MPV 11.2 fl (7.2-11.7) 01/27/19 11:55 Neut % (Auto) 66.0 % (50.0-75.0) 01/27/19 11:55 Lymph % (Auto) 20.4 % (20.0-40.0) 01/27/19 11:55 [place] % (Auto) 8.7 % (0.0-10.0) 01/27/19 11:55 Eos % (Auto) 4.3 % (0.0-4.0) H 01/27/19 11:55 Baso % (Auto) 0.6 % (0.0-2.0) 01/27/19 11:55 Neut # (Auto) 3.6 K/uL (1.8-7.0) 01/27/19 11:55 Lymph # (Auto) 1.1 K/uL (1.0-4.3) 01/27/19 11:55 [place] # (Auto) 0.5 K/uL (0.0-0.8) 01/27/19 11:55 Eos # (Auto) 0.2 K/uL (0.0-0.7) 01/27/19 11:55 Baso # (Auto) 0.0 K/uL (0.0-0.2) 01/27/19 11:55 PT 11.6 Seconds (9.8-13.1) 01/27/19 11:55 INR 1.0 01/27/19 11:55 APTT 28.2 Seconds (25.6-37.1) 01/27/19 11:55 Sodium 138 mmol/l (132-148) 01/29/19 04:20 Potassium 3.8 MMOL/L (3.6-5.0) 01/29/19 04:20 Chloride 102 mmol/L (98-107) 01/29/19 04:20 Carbon Dioxide 27 mmol/L (22-30) 01/29/19 04:20 Anion Gap 13 (10-20) 01/29/19 04:20 BUN 21 mg/dl (7-17) H 01/29/19 04:20 Creatinine 1.1 mg/dl (0.7-1.2) 01/29/19 04:20 Est GFR ( Amer) 57 01/29/19 04:20 Est GFR (Non-Af Amer) 47 01/29/19 04:20 Random Glucose 87 mg/dL (65-105) 01/29/19 04:20 Calcium 8.8 mg/dL (8.4-10.2) 01/29/19 04:20 Phosphorus 3.7 mg/dl (2.5-4.5) 01/27/19 11:55 Magnesium 2.0 MG/DL (1.6-2.3) 01/27/19 11:55 Total Bilirubin 0.8 mg/dl (0.2-1.3) 01/27/19 11:55 AST 24 U/L (14-36) 01/27/19 11:55 ALT 13 U/L (9-52) 01/27/19 11:55 Alkaline Phosphatase 65 U/L (38-126) 01/27/19 11:55 Troponin I < 0.0120 ng/mL (0.00-0.120) 01/27/19 11:55 NT-Pro-B Natriuret Pep 1160 pg/ml (0-900) H 01/27/19 11:55 Total Protein 7.1 G/DL (6.3-8.2) 01/27/19 11:55 Albumin 4.0 g/dL (3.5-5.0) 01/27/19 11:55 Globulin 3.1 gm/dL (2.2-3.9) 01/27/19 11:55 Albumin/Globulin Ratio 1.3 (1.0-2.1) 01/27/19 11:55 TSH 3rd Generation 2.73 mIU/ML (0.46-4.68) 01/27/19 11:55 Urine Color Yellow (YELLOW) 01/27/19 15:11 Urine Clarity Clear (Clear) 01/27/19 15:11 Urine pH 7.0 (5.0-8.0) 01/27/19 15:11 Ur Specific [place] 1.010 (1.003-1.030) 01/27/19 15:11 Urine Protein 100 mg/dL (NEGATIVE) 01/27/19 15:11 Urine Glucose (UA) Neg mg/dL (NEGATIVE) 01/27/19 15:11 Urine Ketones Negative mg/dL (NEGATIVE) 01/27/19 15:11 Urine Blood Negative (NEGATIVE) 01/27/19 15:11 Urine Nitrate Negative (NEGATIVE) 01/27/19 15:11 Urine Bilirubin Negative (NEGATIVE) 01/27/19 15:11 Urine Urobilinogen 0.2-1.0 mg/dL (0.2-1.0) 01/27/19 15:11 Ur Leukocyte Esterase Trace [place]/uL (Negative) 01/27/19 15:11 Urine RBC (Auto) 1 /hpf (0-3) 01/27/19 15:11 Urine Microscopic WBC 9 /hpf (0-5) H 01/27/19 15:11 Ur Squamous Epith Cells < 1 /hpf (0-5) 01/27/19 15:11 Urine Bacteria Occ (<OCC) H 01/27/19 15:11 Attending/Attestation - Attestation I have personally seen and examined this patient.: Yes I have fully participated in the care of the patient.: Yes I have reviewed all pertinent clinical information, including history, physical exam and plan: Yes Notes (Text): Hypertensive Urgency Bradycardia Paroxysmal Atrial Fibrillation, new onset - BP now better controlled - rhythm now sinus, rate controlled - Troponin negative, TSH normal -Metoprolol changed to 20 mg q 12 - cont Losartan - Cleared by Cardio for discharge - ff up with Dr Negron as outpt in 1-2 wks - appt with COLEEN smith
--- NOTE | 2019-01-29 12:31 | CP.PCM.PN ---
Subjective - Date & Time of Evaluation Date of Evaluation: 01/29/19 Time of Evaluation: 08:30 - Subjective Subjective: The patient was found sitting out of bed eating her breakfast. She has no particular symptoms to offer. Her telemetry shows atrial fibrillation at moderate heart rates. Her blood pressure this morning is 156/70 mmHg. Her jugular venous pressure was not elevated and there was no edema over her lower extremities. Review of her echocardiogram shows significant left ventricular hypertrophy with preserved left ventricular systolic function. Her lab data was noted. Her BUN/creatinine and electrolytes were stable. The patient may be allowed to return home and be managed as an outpatient. I have explained to her the need for anticoagulation given atrial fibrillation. Objective - Vital Signs/Intake and Output Vital Signs (last 24 hours): Temp Pulse Resp BP Pulse Ox 97.8 F 47 L 18 166/92 H 98 01/29/19 07:58 01/29/19 10:22 01/29/19 07:58 01/29/19 08:31 01/29/19 10:22 - Medications Medications: Current Medications Acetaminophen (Tylenol 325mg Tab) 650 mg PO Q6 PRN PRN Reason: Headache Latanoprost (Xalatan Opht) 1 drop OU HS [facility] Last Admin: 01/28/19 21:18 Dose: 1 drop Losartan Potassium (Cozaar) 100 mg PO DAILY [facility] Last Admin: 01/29/19 08:30 Dose: 100 mg Metoprolol Tartrate (Lopressor) 25 mg PO Q12 [facility] Last Admin: 01/29/19 08:31 Dose: 25 mg Ondansetron HCl (Zofran Inj) 4 mg IVP Q6 PRN PRN Reason: Nausea/Vomiting Rivaroxaban (Xarelto) 20 mg PO QD5 [facility]; Protocol Last Admin: 01/28/19 16:35 Dose: 20 mg - Labs Labs: 01/29/19 04:20 01/29/19 04:20 PT 11.6 Seconds (9.8-13.1) 01/27/19 11:55 INR 1.0 01/27/19 11:55 APTT 28.2 Seconds (25.6-37.1) 01/27/19 11:55
== END 2019-01-29 13:08 | disposition home health service (06) | DRG 305 ==
LOC: H.ER 11:01 → H.ERHOLD 13:46 → H.TEL 15:18
DX: I16.0 Hypertensive urgency (principal); N18.4 Chronic kidney disease, stage 4 (severe); I13.10 Hypertensive heart and chronic kidney disease without heart failure, with stage 1 through stage 4 chronic kidney disease, or unspecified chronic kidney disease; I48.0 Paroxysmal atrial fibrillation; R00.1 Bradycardia, unspecified; M17.0 Bilateral primary osteoarthritis of knee; H40.9 Unspecified glaucoma; Z79.01 Long term (current) use of anticoagulants; Z88.1 Allergy status to other antibiotic agents; Z87.891 Personal history of nicotine dependence; Z90.49 Acquired absence of other specified parts of digestive tract